=== PATIENT | female | born 2005 | race Caucasian/White ===

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

== ENCOUNTER → 2023-03-28 10:04 | Outpatient (CLI) | payer BC, SELFPAY ==
--- NOTE | 2023-03-28 10:15 | XR_ITS ---
FINAL REPORT CLINICAL HISTORY: SALOMON HIP PAIN COMPARISON: None FINDINGS: LEFT HIP: Two views of the left hip demonstrate no acute fracture or dislocation. The joint spaces appear normal. The visualized bony structures are well aligned. No soft tissue abnormality is seen. IMPRESSION: No acute bony abnormality. Reviewed, Interpreted and Dictated by Maxi Carty MD Transcribed by Yoselin Jerome Authenticated and [facility]
--- NOTE | 2023-03-28 10:15 | XR_ITS ---
FINAL REPORT CLINICAL HISTORY: SALOMON HIP PAIN COMPARISON: None FINDINGS: RIGHT HIP Two views of the right hip demonstrate no acute fracture or dislocation. The joint spaces appear normal. The visualized bony structures are well aligned. No soft tissue abnormality is seen. IMPRESSION: No acute bony abnormality. Reviewed, Interpreted and Dictated by Maxi Carty MD Transcribed by Yoselin Jerome Authenticated and [facility]
== END ==
PROVIDERS: PCP Pediatrics; Visit Provider Psychiatry & Neurology Neurology
DX: M25.551 Pain in right hip (principal); M25.552 Pain in left hip
CPT/HCPCS: 73502

== ENCOUNTER 2024-03-04 09:23 | Emergency (ER) | payer BC, SELFPAY ==
[2024-03-04 10:00] VITALS: BP 121/73; PULSE 75; RESP 19; TEMP 36.8; O2SAT 97; BMI 30.1
--- NOTE | 2024-03-04 10:09 | XR_ITS ---
PROCEDURE INFORMATION: Exam: XR Thoracic Spine Exam date and time: 03/04/2024 10:27 AM Age: 18 years old Clinical indication: Pain in thoracic spine TECHNIQUE: Imaging protocol: Radiologic exam of the thoracic spine. Views: 2 views. COMPARISON: CR Ribs R 03/04/2024 10:23 AM FINDINGS: Bones/joints: Cervicothoracic junction is obscured by structure overlap. Vertebral alignment is maintained. There is preservation of vertebral body heights. No visible fracture. Interpedicular distances are maintained. Soft tissues: Unremarkable. IMPRESSION: No acute fracture. No traumatic subluxation.
--- NOTE | 2024-03-04 10:09 | XR_ITS ---
PROCEDURE INFORMATION: Exam: XR Right Ribs with PA Chest Exam date and time: 03/04/2024 10:23 AM Age: 18 years old Clinical indication: Injury or trauma; Fall; Rib area; Dislocation; Additional info: Pain TECHNIQUE: Imaging protocol: Radiologic exam of the right ribs with PA chest. Views: 3 views COMPARISON: CR XR CHEST 2V 12/23/2021 2:49 PM FINDINGS: Lungs: No evidence of pneumonia or interstitial edema. Pleural spaces: Unremarkable. No pleural effusion. No pneumothorax. Heart/Mediastinum: Unremarkable. No cardiomegaly. Bones/joints: No visible acute fracture. IMPRESSION: 1. No evidence of pneumonia or interstitial edema. 2. No visible acute fracture.
--- NOTE | 2024-03-04 10:11 | ED_ITS ---
Discharge Plan Disposition Patient Disposition: Home, Self-Care Condition: Good Prescriptions Prescriptions: New cyclobenzaprine 5 mg tablet 5 mg PO BID PRN (Reason: muscle spasm) Qty: 20 0RF methylprednisolone 4 mg Tablets,Dose Pack 4 mg PO DIRECTED 6 Days Qty: 21 0RF Rx Instructions: Take 1 pack as directed for 6 days No Action Slynd 4 mg (28) tablet 4 mg PO DAILY Patient Comments: TAKE 1 TABLET BY MOUTH ONCE DAILY Referrals Follow up/Referrals: Cirilo Abdul MD [Primary Care Provider] - See instructions Activity Restrictions/Add. Instructions Additional Instructions/Restrictions: Go home and rest. It would be best if you rested tomorrow too. No heavy lifting & No twisting for the next few days. Take the oral medications as directed. The muscle relaxer (cyclobenzaprine--Flexeril) will make you drowsy, so don't dr ari or operate heavy machinery after taking it. Follow up with your regular doctor. If you keep having these symptoms, discuss a referral to a school transportation supervisor with your primary care physician. Make sure you reschedule the appointment with the fuels sales representative that you had. It's very important for people with hyperflexibiltiy of their joints to get their heart and major vessels checked out. This pain you are having today does not seem like it is cardiac related, but if it continues or worsens make sure you go to the ER. GO TO THE ER FOR ANY WORSENING SYMPTOMS OR CONCERNS Clinical Impressions Clinical Impression: Back pain, thoracic, Rib pain on right side Stand Alone Forms Stand Alone Forms: Work/School Release Instructions Patient Instructions: DI for Rib Contusion, DI for Thoracic Back Pain Print Language Print Language: Iraqi Discharge ED Provider: Robson Gilliland [facility] General Stated complaint: pain in R rib area-popped out 5 days ago Time Seen by Provider: 03/04/24 10:10 History of Present Illness Provider Complaint: She states that she has had right rib pain for the past 5 days. She denies that she fell or had any other injury. She denies shortness of breath. Related Data Home Medications ?Medication ?Instructions ?Recorded ?Confirmed drospirenone (contraceptive) 4 mg 4 mg PO DAILY 03/04/24 03/04/24 (28) tablet (Slynd) Previous Rx's ?Medication ?Instructions ?Recorded cyclobenzaprine 5 mg tablet 5 mg PO BID PRN muscle spasm #20 03/04/24 tabs methylprednisolone 4 mg tablets in 4 mg PO DIRECTED 6 days #21 tabs 03/04/24 a dose pack Allergies Allergy/AdvReac Type Severity Reaction Status Date / Time lamotrigine Allergy Verified 03/25/22 09:08 sertraline (From Zoloft) Allergy Verified 03/25/22 09:08 [facility] Disclaimer: The information contained in this section may have been updated after the patient was seen, as this information can be updated by other users. 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: Never smoker second hand exposure: No alcohol intake: never substance use type: other current occupational status: other housing: house current occupational exposures/hazards: No ROS Obtained: Yes All systems reviewed & no additional complaints except as documented Constitutional Constitutional: Denies chills and Denies fever(s) Eyes Eyes: Denies eye discharge ENT Ears, Nose, Mouth, and Throat: Denies dizziness, Denies otalgia and Denies sore throat Cardiovascular Cardiovascular: Reports as per HPI and Denies chest pain Respiratory Respiratory: Reports as per HPI, Denies shortness of breath, Denies chest congestion, Denies cough, Denies stridor and Denies wheezing Gastrointestinal Gastrointestingal: Denies nausea or vomiting Musculoskeletal Musculoskeletal: Reports system reviewed and no additional complaints, except as documented and Denies arthralgias Integumentary/Breasts Skin/Breast: Denies rash Neurologic Neurologic: Denies dizziness and Denies paresthesias Allergic/Immunologic Allergic/Immunologic: Denies wheezing Physical Exam General General appearance: alert and in no apparent distress Head Head exam: atraumatic, normocephalic and normal inspection Eye Eye exam: Present normal appearance, PERRL and EOMI ENT ENT exam: Present normal exam, normal oropharynx, mucous membranes moist, TM's normal bilaterally and normal external ear exam Neck Neck exam: Present normal inspection, full ROM and trachea midline; Absent meningismus or lymphadenopathy Chest Chest inspection: Present symmetric chest wall rise and tenderness Respiratory Respiratory exam: Present normal lung sounds bilaterally; Absent respiratory distress Cardiovascular Cardiovascular exam: Present regular rate and normal rhythm; Absent JVD Abdominal Exam Abdominal exam: Present soft and normal bowel sounds; Absent distention, tenderness or guarding Extremities Exam Extremities exam: Present normal inspection, full ROM and normal capillary refill; Absent calf tenderness Back Exam Back exam: Present normal inspection; Absent tenderness Neurological Exam Neurological exam: Present alert and oriented X3 Psychiatric Psychiatric exam: Present normal affect and normal mood Skin Skin exam: Present warm, dry, intact and normal color Lymphatic Lymphatic Findings: no adenopathy Medical Decision Making Medical Records Medical records reviewed: No I reviewed the patient's medical records. Screening: Per USPSTF and CDC recommendations, given the prevalence of disease in our region, it is our hospital?s policy to screen for HIV and viral Hepatitis for all patients aged 18 and over and those with ongoing risk factors. Lg Inquiry Pt receiving controlled substance: No Orders (Tests/Meds): ORDERS Category Date Time Status XR ribs RT min 3V w CXR1V Stat Exams 03/04/24 10:09 Ordered XR thoracic spine 2V Stat Exams 03/04/24 10:09 Ordered
[2024-03-04 10:19] LABS: UTC Pregnancy Test, Urine Negative (Negative)
[2024-03-04 11:22] VITALS: BP 121/73; PULSE 75; RESP 19; TEMP 36.8; O2SAT 97
== END 2024-03-04 11:24 | disposition home or self-care (01) ==
PROVIDERS: Emergency Provider Nurse Practitioner Family; PCP Pediatrics
DX: M54.6 Pain in thoracic spine (principal); R07.82 Intercostal pain
CPT/HCPCS: 71101; 72070; 81025; 99213; G0381

== ENCOUNTER 2024-03-19 13:22 | Outpatient (CLI) | payer BC, SELFPAY ==
[2024-03-21 16:08] LABS: H. pylori Stool Ag, EIA Negative (Negative)
[2024-03-22 04:21] LABS: Pancreatic Elastase, Fecal >800 (>200)
[2024-03-26 19:15] LABS: Fats, Neutral Normal (.); Fats, Total Normal (.)
== END 2024-03-19 23:59 | disposition home or self-care (01) ==
LOC: LAB 13:23
PROVIDERS: Plastic Surgery; PCP Pediatrics; Visit Provider Internal Medicine Gastroenterology
DX: R07.89 Other chest pain (principal)
CPT/HCPCS: 82656; 82705; 87045; 87177; 87205; 87338

== ENCOUNTER 2025-02-19 10:43 | Outpatient (CLI) | payer BC, SELFPAY ==
--- OUTSIDE RECORDS SUMMARY | 2025-02-21 11:02 | XMS_ITS | Clinical Summary ---
Author Organization [facility] Address [address] [place] [id number] Care Team Providers Care Child Welfare Manager Name Role Phone Cirilo Abdul MD Primary Care Provider [phone] Allergies Active Allergy Reactions Criticality Noted Date Comments Lamotrigine Hives,Itching,Rash Low 03/21/2022 Sertraline Rash Low 05/23/2021 Medications buPROPion SR (WELLBUTRIN SR) 100 MG 12 hr tablet Take 1 tablet by mouth 2 (Two) Times a Day. 1 Active FOLIC ACID PO Take by mouth. Active propranolol (INDERAL) 10 MG tablet 2 Active cetirizine (zyrTEC) 10 MG tablet Take 1 tablet by mouth Daily. Active Levonorgestrel (KYLEENA) 19.5 MG intrauterine device IUDIndications:En counter for IUD insertion To be inserted one time by prescriber. Route intrauterine. 5 09/08/19 30 Active fluconazole (Diflucan) 200 MG tablet Take 1 tablet by mouth Daily for 2 days. 2 tablet 5 01/23/20 25 Active Problems No known active problems Family History Medical History Relation Name Comments Breast cancer Mother Relation Name Status Comments Father Mother Alive 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 Tobacco Use Types Packs/Day Years Used Date Smoking Tobacco: Never Smokeless Tobacco: Never Alcohol Use Standard Drinks/Week Comments Yes 0 (1 standard drink = 0.6 oz pur e alcohol) occ Comments No Sex and Gender Information Value Date Recorded Sex Assigned at Not on file Legal Sex Female 12:12 PM EDT Gender Identity Not on file Sexual Orientation Not on file Last Filed Vital Signs Vital Sign Reading Time Taken Comments Blood Pressure 100/66 10/05/2024 10:39 AM EDT Pulse 84 01/20/2019 10:10 AM EDT Temperature 36.1 C (97 F) 01/20/2019 9:45 AM EDT Respiratory Rate 14 03/27/2023 9:32 AM EST Oxygen Saturation 94% 01/20/2019 10:10 AM EDT Inhaled Oxygen Concentration - - Weight 60.8 kg (134 lb) 10/05/2024 10:39 AM EDT Height 148.6 cm (4' 10.5 ) 10/05/2024 10:39 AM E DT Body Mass Index 27.53 10/05/2024 10:39 AM EDT Plan of Treatment Upcoming Encounters Date Type Department Care Team (Late st Contact Info) Description 03/30/2025 2:10 PM EST Office Visit [facility] [address] [id number] Melony Richter MD [address] [place] [address] Health Maintenance Due Date Last Done Comments ANNUAL PHYSICAL 02/21/2021 HEPATITIS C SCREENING 02/21/2021 PAP SMEAR 10/13/2024 INFLUENZA VACCINE 11/12/2024 Annual Gynecologic Pelvic and Breast Exam 03/30/2025 03/29/2024 TDAP/TD VACCINES (3 - Td or Tdap) 07/10/2030 07/10/2020, 2014 Pneumococcal Vaccine 0-49 Aged Out 2004, 01/17/2005, 04/25/2004, Additional history exists No longer eligible based on patient's age to complete this topic HPV VACCINES Completed 11/06/2018, 04/09/2018 MENINGOCOCCAL VACCINE Completed 07/10/2020, 015 MENINGOCOCCAL B VACCINE Completed 12/03/2021, 04/04 CHLAMYDIA SCREENING Discontinued 03/21/2022 Medical Devices Implanted Type Area Hotel Or Motel Receptionist Device Identifier Shelf Expiration Date Model / Serial / Lot Reload Stplr Lnr Cut Endopath Thn 45 Wht - [id number] Implanted:Qty : 3 on 01/20/2019 by Leon Priest MD at [facility] Implant N/A: Abdomen [employer] 01/11/2023 [id number] / / [id number] Procedures Procedure Name Priority Date/Time Associated Diagnosis Comments CHANDRIKA ALBICANS, GARDNERELLA VAGINALIS, TRICHOMONAS VAGINALIS,DNA Routine 03/21/2022 Vaginal discharge from Last 3 Months or Most Recently Relevant to Health Maintenance Results * Gardnerella vaginalis, Trichomonas vaginalis, Chandrika albicans, DNA - Swab, Vagina (03/21/2022) Swab Vaginal structure / Unknown Melony Richter MD MICROBIOLOGY - GENERAL ORDERABLE S Final Result MEDICAL DIAGNOSTIC LAB [facility] [place] [address] from Last 3 Months or Most Recently Relevant to Health Maintenance Insurance [employer] [facility] HMO [id number] [place] [id number] Care Teams Child Welfare Manager Relationship Specialty Start Date End Date Cirilo Abdul MD PCP - General 07/28/15
--- OUTSIDE RECORDS SUMMARY | 2025-02-21 11:02 | XMS_ITS | Clinical Summary ---
Author Organization [facility] Address [address] [place] [address] Care Team Providers Care Gas Charger Name Role Phone Cirilo Abdul MD Primary Care Provider Allergies Active Allergy Reactions Criticality Noted Date Comments Lamotrigine Rash Low 05/23/2021 Sertraline Rash Low 05/23/2021 Medications propranolol (Inderal) 10 MG tablet Take 1 tablet (10 mg) by mouth 1 (one) time each day if needed. 1 Active Microgestin 05/03 1-20 MG-MCG tablet Take 1 tablet by mouth 1 (one) time each day. 2 Active buPROPion SR (Wellbutrin SR) 100 MG 12 hr tablet Take 1 tablet (100 mg) by mouth 2 (two) times a day. 1 Active folic acid (Folvite) 1 MG tablet Take by mouth 1 (one) time each day. Using 15 mg OTC daily Active omeprazole OTC (PriLOSEC OTC) 20 MG EC tabletIndication s:Chest pain, unspecified type Take 1 tablet (20 mg total) by mouth 1 (one) time each day. Take 30 minutes to an hour before breakfast. 30 tablet 1 2 Active Additional Information Patient not taking.Reported on 07/16/2021 hydrOXYzine HCl (Atarax) 10 MG tablet TAKE 1 TABLET BY MOUTH THREE TIMES DAILY TO FOUR TIMES DAILY NEEDED FOR ALLERGIES 2 Active omeprazole (PriLOSEC OTC) 20 MG EC tablet TAKE ONE TABLET BY MOUTH ONCE A DAY. TAKE 30 MINUTES TO AN HOUR BEFORE BREAKFAST 2 Active azelastine (Astelin) 0.1 % nasal spray 1-2 sprays in each nostril twice daily 30 mL 11 2 Active Additional Information Patient not taking.Reported on 03/24/2023 albuterol 108 (90 Base) MCG/ACT inhaler Inhale 2 puffs every 4 (four) hours if needed for wheezing. 18 g 2 Active Vraylar 1.5 MG capsule Take 1 capsule (1.5 mg) by mouth 1 (one) time each day. 3 Active Drospirenone (SLYND PO) Take by mouth. Acti ve Active Problems Problem Noted Date Diagnosed Date Chest discomfort 04/27/2021 Allergic rhinitis 04/27/2021 Encounters Date Type Department Care Team Description 02/03/2025 Community Orders [facility] [address] [place] [phone] Cirilo Abdul MD Hypermobile joints (Primary Dx) from Last 3 Months Immunizations Immunization Administration Dates Next Due DTaP 11/11/2007, 6,04/25/2004,02/21/2004,0 2003 HPV 9-Valent 11/06/2018,04/09/2018 Hep A, ped/adol, 2 dose 12/08/2006,12/27/2005 Hep B, Adolescent or Pediatric 10/18/2004,2004,04/25/2004 Hib (PRP-OMP) 01/17/2005,04/25/2004,02/21/2004 ,2003 IPV 11/11/2007,04/30/2005,02/21/2004 ,2003 MMR 11/11/2007,10/18/2004 Meningococcal MCV4P 07/10/2020,2014 Pneumococcal Conjugate PCV 13 01/17/2005, 005,02/21/2004,2003 Tdap 07/10/2020,2014 Varicella 11/05/2010,11/11/2007 Family History Medical History Relation Name Comments Allergic rhinitis Neg Hx Asthma Neg Hx Cystic fibrosis Neg Hx Eczema Neg Hx 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 Tobacco Use Types Packs/Day Years Used Date Smoking Tobacco: Never Passive Smoke Exposure: Past Tobacco Cessation:Counseling Given: Not Answered Alcohol Use Standard Drinks/Week Comments Never 0 (1 standard drink = 0.6 oz pur e alcohol) Comments Unknown Sex and Gender Information Value Date Recorded Sex Assigned at Not on file Legal Sex Female 8:47 PM EDT Gender Identity Not on file Sexual Orientation Not on file Last Filed Vital Signs Vital Sign Reading Time Taken Comments Blood Pressure 124/82 03/24/2023 1:18 PM EST Pulse 107 03/24/2023 1:18 PM EST Temperature 36.5 C (97.7 F) 07/16/2021 1:57 PM EDT Respiratory Rate 16 05/23/2021 9:19 AM EST Oxygen Saturation 99% 03/24/2023 1:18 PM EST Inhaled Oxygen Concentration - - Weight 63.5 kg (140 lb) 05/14/2023 3:55 PM EST Height 149.9 cm (4' 11 ) 05/14/2023 3:55 PM EST Body Mass Index 28.28 05/14/2023 3:55 PM EST Plan of Treatment Health Maintenance Due Date Last Done Comments [facility]-Depression Screening 2003 [facility]-HIV Screening 2003 [facility]-Hepatitis C Screening 2003 [facility]-/Child/Adol SDOH Screenings 2003 [facility]- SDOH Screenings 10/13/2021 [facility]-Adult SDOH Screenings 10/13/2021 [facility]-Pap Smear 10/13/2024 [id number] Vaccine ( season) 2024 [facility]-Influenza Vaccine (#1) 2024 [facility]-DTaP,Tdap,and Td Vaccines (8 - Td or Tdap) 07/10/2030 07/10/2020, 2014, 11/11/2007, Additional history exists [facility]-Zoster Vaccines (1 of 2) 10/13/2053 11/05/2010, 11/11/2007 [facility]-Hepatitis B Vaccines Completed 005, 07/24/2004, 04/25/2004 [facility]-HIB Vaccines Completed 01/17/2005, 03/2005, 02/21/2004, Additional history exists [facility]-Pneumococcal Vaccine: Pediatrics (0 to 5 Years) and At-Risk Patients (6 to 49 Years) Completed 01/17/2005, 01/17/2005, 04/25/2004, Additional history exists [facility]-Hepatitis A Vaccines Completed 12/08/2006, 12/13 [facility]-IPV Vaccines Completed 11/11/2007, , 02/21/2004, Additional history exists [facility]-Varicella Vaccines Completed 11/05/2010, 2007 HPV Vaccines Completed 11/06/2018, 04/09/2018 [facility]-Obesity Intervention Completed 05/15/2023, 03/14 [facility]-Rotavirus Vaccines Aged Out No lo nger eligible based on patient's age to complete this topic Insurance ANTH Care Teams Gas Charger Relationship Specialty Start Date End Date Cirilo Abdul MD [address] [place] [address] PCP - General Pediatrics 04/10/21
--- OUTSIDE RECORDS SUMMARY | 2025-02-21 11:02 | XMS_ITS | Encounter Summary ---
Author Organization [facility] Address [address] [place] [address] Care Team Providers Care Sap Pi Developer Name Role Phone Cirilo Abdul MD Primary Care Provider [phone] Reason for Referral * Consultation (Routine) - Authorized Specialty Diagnoses / Procedures Referred By Juvencio milligan Referred To Contact Rheumatology Diagnoses Hypermobile joints Cirilo Abdul MD [address] [address] Phone: tel: fax: Referral ID Status Reason Start Date Expiration Date Visits Requested Visits Authorized [id number] Authorized Specialty Services Required 08/05/2026 1 1 Encounter Details Date Type Department Care Team (Late st Contact Info) Description 02/03/2025 Community [facility] [address] [place] [phone] Cirilo Abdul MD [address] [place] [address] Hypermobile joints (Primary Dx) 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 Tobacco Use Types Packs/Day Years Used Date Smoking Tobacco: Never Passive Smoke Exposure: Past Alcohol Use Standard Drinks/Week Comments Never 0 (1 standard drink = 0.6 oz pur e alcohol) Comments Unknown Sex and Gender Information Value Date Recorded Sex Assigned at Not on file Legal Sex Female 8:47 PM EDT Gender Identity Not on file Sexual Orientation Not on file documented as of this encounter Plan of Treatment Scheduled Referrals Name Type Priority Associated Diagnoses Order Schedule Ambulatory referral to Rheumatology Outpatient Referral Routine Hypermobile joints Expected: 02/03/2025 (Approximate), Expires: 08/07/2026 documented as of this encounter Visit Diagnoses Diagnosis Hypermobile joints- Primary Other joint derangement, not elsewhere classified, unspecified site documented in this encounter Additional Health Concerns Assessment Noted Time A fall risk assessment has been complete d for the patient 03/24/2023 1:21 PM EST A Body Mass Index follow-up plan has been documented for the patient 05/15/2023 10:43 AM EST documented as of this encounter Care Teams Sap Pi Developer Relationship Specialty Start Date End Date Cirilo Abdul MD [address] [place] [address] PCP - General Pediatrics 04/10/21 documented as of this encounter
== END 2025-02-19 23:59 | disposition home or self-care (01) ==
LOC: LAB.DROPOF 02-21 10:43
PROVIDERS: PCP Pediatrics; Visit Provider Nurse Practitioner Family
DX: N39.0 Urinary tract infection, site not specified (principal)
CPT/HCPCS: 87086; 87088

== ENCOUNTER 2025-03-07 13:54 | Outpatient (RCR) | payer OTHER, SELFPAY | END 2025-03-07 23:59 | disposition home or self-care (01) | LOC: PT 13:54 | PROVIDERS: PCP Pediatrics; Visit Provider Pediatrics | DX: M35.7 Hypermobility syndrome (principal) | CPT/HCPCS: 97161 ==

== ENCOUNTER 2025-04-11 13:00 | Outpatient (RCR) | payer OTHER, SELFPAY | END 2025-04-11 23:59 | disposition home or self-care (01) | LOC: PT 13:00 | PROVIDERS: PCP Pediatrics; Visit Provider Pediatrics | DX: M35.7 Hypermobility syndrome (principal) | CPT/HCPCS: 97113 ==